=== PATIENT | male | born 1955 | race Caucasian/White ===

== ENCOUNTER 2020-05-08 08:20 | Day surgery (SDC) | payer OTHER ==
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
[2020-05-08] MEDS ORDERED: Ringers Lactate 1,000 ML IV ONE (09:12)
[2020-05-08] MEDS ORDERED: CEFAZOLIN/SWI 1gm 1 GM/10 ML SYR ONE (09:12)
[2020-05-08] MEDS ORDERED: BUPIVACAINE 0.25% PF 10 ML VIAL ONE (09:55)
[2020-05-08] MEDS ORDERED: FENTANYL CITR 100 MCG/2 ML ONE (10:07)
[2020-05-08] MEDS ORDERED: MIDAZOLAM HCL 2 MG/2 ML INJ ONE (10:07)
[2020-05-08] MEDS ORDERED: propofoL 200 MG/20 ML VIAL IV ONE (10:07)
[2020-05-08] MEDS ORDERED: LIDOCAINE 1% MPF 5 ML VIAL ONE (10:07)
[2020-05-08] MEDS ORDERED: KETOROLAC 30 MG/ML INJ ONE (10:39)
[2020-05-08] MEDS ORDERED: ONDANSETRON 4 MG/2 ML VIAL ONE (10:40)
--- NOTE | 2020-05-08 10:52 | P.OP ---
Preoperative diagnosis: Middle Back Infected Sebaceous Cyst Postoperative diagnosis: Middle Back Infected Sebaceous Cyst Primary procedure: Wide local excision of Middle Back Infected Sebaceous Cyst Anesthesia: GETA + Local Estimated blood loss: <5cc Specimen: cultures and debridement tissue Findings: 5cm x 3 cm to fascia over muscle Complications: None Transferred to: Recovery Room Condition: Good
--- NOTE | 2020-05-08 11:25 | OP ---
Date of Procedure: 05/08/2020 Surgeon: Brijesh Schulz MD, Preoperative Diagnosis: Middle back infected sebaceous cyst. Postoperative Diagnosis: Middle back infected sebaceous cyst. Procedure Performed: Wide local excision of middle back infected sebaceous cyst. Anesthesia: General endotracheal plus local with 0.25% Marcaine without epinephrine. Estimated Blood Loss: Less than 5 cc. Specimen: Cultures and debridement tissue. Findings: A 5 cm x 3 cm infected sebaceous cyst extending to the fascia overlying the muscle. Complications: None. Disposition: The patient was transferred recovery room in good condition. Procedure In Detail: After informed consent was obtained, the patient was brought to the operating r oom, prepped and draped in the usual sterile fashion. After adequate anesthesia was achieved, an ell iptical incision was made around approximately 5 x 3 cm area of the mid upper back down through subcu taneous tissues. Electrocautery was used to dissect down to subcutaneous fat and circumferentially r emoved out an infected abscess with sebaceous cyst. This was multiloculated. Cultures were sent for both aerobic and anaerobic speciation. Circumferential dissection extended all the way down to the fascia overlying the muscle and the sebaceous material was removed in its entirety including the caps ule surrounding. The area was copiously irrigated multiple times until complete clear. Hemostasis w as achieved with electrocautery and the wound was then packed with half-inch iodoform packing and anusha rile dressing was placed over top. The patient tolerated the procedure well without evidence of comp lication and transferred to PACU in good condition. All counts were correct at the end of the case. TRAVIS/AALIYAH Voice ID: [id number] Report ID: [id number]
[2020-05-08 13:51] VITALS: BP 136/75; TEMP 97.2; O2SAT 100
== END 2020-05-08 12:30 | disposition home or self-care (01) ==
LOC: OR 08:20
PROVIDERS: ATTEND Surgery
PROC: 0JB70ZZ Excision of Back Subcutaneous Tissue and Fascia, Open Approach (ICD-10-PCS; principal; 2020-05-08 10:00)
DX: L72.0 Epidermal cyst (principal); Z20.822 Contact with and (suspected) exposure to COVID-19
CPT/HCPCS: 87070; 87205; 88304; 87075; 11406; U0002; J2704; J2250; J3010; J0690; J7120; J2405

== ENCOUNTER 2021-06-16 08:22 | Day surgery (SDC) | payer OTHER ==
[2021-06-16] MEDS ORDERED: Ringers Lactate 1,000 ML IV ONE (08:45)
[2021-06-16] MEDS ORDERED: CEFAZOLIN SODIUM 1 GM/VIAL ONE (08:45)
[2021-06-16] MEDS ORDERED: NA CHLORIDE 0.9% 50 ML ONE ×2 (08:45→08:46)
[2021-06-16] MEDS ORDERED: propofoL 200 MG/20 ML VIAL IV ONE (09:24)
[2021-06-16] MEDS ORDERED: LIDOCAINE 2% MPF 5 ML VIAL ONE (09:24)
[2021-06-16] MEDS ORDERED: MIDAZOLAM HCL 2 MG/2 ML INJ ONE (09:24)
[2021-06-16] MEDS ORDERED: FENTANYL CITR 100 MCG/2 ML ONE (09:24)
[2021-06-16] MEDS ORDERED: dexAMETHasone 10 MG/ML VIAL ONE (09:24)
[2021-06-16] MEDS ORDERED: LIDOCAINE 1% W/EPI 1:100,000 MDV 50 ML VIAL ONE (10:02)
[2021-06-16 11:58] VITALS: TEMP 97.6
[2021-06-16 12:50] VITALS: BP 154/80; O2SAT 98
--- NOTE | 2021-06-17 09:14 | OP ---
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 Postoperative Diagnosis: Scar tissue with actinic damage. Procedure: Excisional biopsy with intermediate layered closure and frozen section analysis of right inferolateral neoplasm under general and local anesthesia. Anesthesia: General LMA anesthesia was administered. I also infiltrated approximately 10 mL of 1% l idocaine with 1:100,000 epinephrine at the incision site. Estimated Blood Loss: Scant, less than 2 mL. Specimens: Submitted to pathology for frozen section analysis. Preliminary results revealed scar ti ssue with actinic damage; permanent sections forthcoming. Findings: Ulcerative indurated scar noted in the right inferolateral forehead from the prior biopsy site. This area measured approximately 1.0 x 1.0 cm; the excision was 1.5 x 1.5 cm leaving a wound d efect after removing several standing cutaneous deformities was 2.5 x 2.0 cm. The final closure michael th was 3.0 cm. Complications: None. Disposition: Stable. The patient tolerated procedure well. 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 The margins were appare ntly positive. He was placed on Efudex cream for other scabbed like lesions, but he also applied to this area and presented to the preoperative area with a small centralized ulcer noted in the right in ferolateral forehead over the prior biopsy site. We decided to undergo excisional biopsy under sedat ion as well as local anesthetic in that the lesion has not completely resolved. He understood, all q uestions were answered. Risks versus benefits and complications were explained in detail and a conse nt form was signed, which was placed on the chart. Description Of Procedure: The patient was transferred from the preoperative holding area to the oper ative suite by Department of Anesthesia, placed on the operating table supine, sedated and an LMA was placed. I infiltrated approximately 10 mL of 1% lidocaine with 1:100,000 epinephrine at the incisio n site. The patient was then sterilely prepped and draped. The lesion was removed with an additional 0.5 cm of clear margin utilizing a 15 blade scalpel through the epidermis down to the subcutaneous level. I then switched to a needlepoint electrocautery for h emostasis and I excised the lesion out completely with needlepoint electrocautery. Hemostasis was ac hieved with needlepoint electrocautery. The superior margin was marked with a long 3-0 silk suture a nd then the lateral border was marked with a short 3-0 silk suture and handed off the field for froze n section analysis. Preliminary results revealed central scar tissue with actinic damage, but no [place] dence of squamous cell carcinoma or actinic keratosis. Permanent sections are forthcoming. I then extensively undermined the edges with needlepoint electrocautery and then removed standing cut aneous deformities at the medial and lateral borders with curved iris scissors. I then reapproximate d the subcutaneous and dermal tissue layers with 4-0 Monocryl in a simple interrupted fashion. The e pidermis was then reapproximated with 5-0 Prolene in a continuous running fashion. Antibiotic ointme nt and a dressing were placed. He tolerated the procedure well. We discharged home on antibiotic ointment to use twice daily and will follow up in 1 -2 weeks or sooner if needed. PAKO/AALIYAH Voice ID: [id number] Report ID: [id number]
== END 2021-06-16 12:40 | disposition home or self-care (01) ==
LOC: OR 08:22
PROVIDERS: ATTEND Otolaryngology Facial Plastic Surgery
PROC: 0JB10ZZ Excision of Face Subcutaneous Tissue and Fascia, Open Approach (ICD-10-PCS; principal; 2021-06-16 09:45)
DX: L57.0 Actinic keratosis (principal); L90.5 Scar conditions and fibrosis of skin; L57.8 Other skin changes due to chronic exposure to nonionizing radiation; Z20.822 Contact with and (suspected) exposure to COVID-19
CPT/HCPCS: 88331; 88332; 88305; 11443; U0003; J2704; J2250; J3010; J1100; J7120; J0690